=== PATIENT | female | born 1950 | race Caucasian/White ===

== ENCOUNTER 2021-01-21 10:04 | Emergency (ER) | payer MEDICARE, MEDICAID ==
[~2021-01-21] VITALS: Ht 114.3 cm; Wt 69.7 kg
[~2021-01-21 10:04] MED LIST: ALPR-624 PO; CITA20TA28 PO; CYCL-394 PO; DICY10CA88 PO; MECL-69 PO; PER10325T PO; TRAZ-251 PO; ZES10T PO
[2021-01-21] MEDS ORDERED: LIDOcaine 1% W/epiNEPHrine 1:200,000 10ml vial IJ ONE (12:20)
[2021-01-21] MEDS ORDERED: TETanus/Pertussis (Acell)/Diphther VAC/PF (Tdap-Adult) 0.5ml syringe IMVAC ONE (12:20)
[2021-01-21] MEDS ORDERED: CEPH-585 PO (12:55)
[2021-01-21 13:10] VITALS: BP 143/92
== END 2021-01-21 13:12 | disposition home or self-care (01) ==
LOC: ER 10:05
DX: L72.3 Sebaceous cyst (principal); F17.210 Nicotine dependence, cigarettes, uncomplicated
CPT/HCPCS: 10060; 90471; 90715; 99284